=== PATIENT | female | born 1960 | race American Indian/Alaskan Native ===

== ENCOUNTER 2019-07-03 11:05 | Observation (INO) | payer BC ==
--- NOTE | 2019-07-03 11:50 | XRay Report ---
CHEST 2 VIEWS INDICATION / CLINICAL INFORMATION: Chest Pain. COMPARISON: None available. FINDINGS: SUPPORT DEVICES: None. HEART / MEDIASTINUM: No significant abnormality. LUNGS / PLEURA: No significant pulmonary or pleural abnormality. No pneumothorax. ADDITIONAL FINDINGS: No significant additional findings. IMPRESSION: 1. No acute findings. Signer Name: Robert Mullins MD Signed: 07/03/2019 11:46 AM Workstation Name: [id number]
[2019-07-03] MEDS ORDERED: MORPHINE 4 MG/1 ML INJ IV ONE (11:51)
[2019-07-03] MEDS ORDERED: ONDANSETRON 4 MG/2 ML INJ IV ONE (11:51)
[2019-07-03 11:57] LABS: BUN/Creatinine Ratio 28; Blood Urea Nitrogen 14 mg/dL (7-17); Calcium 9.5 mg/dL (8.4-10.2); Hemolysis Index 3
--- NOTE | 2019-07-03 11:58 | Emergency Department Report ---
HPI - General Chief Complaint: Chest Pain Time Seen by Provider: 07/03/19 11:33 - HPI HPI: Room 4 The patient is a 59-year-old female present with a chief complaint of chest pain. The patient states she has had intermittent chest pain for the past 4 ye ars. Patient states last week she also developed numbness in her left hand and upper extremity in addition to her sharp chest pain. Patient denies shortness of breath or nausea/vomiting but admits to diaphoresis with her chest pain. Patient currently gives her pain a score of 7/10. Patient states she took 181 mg aspirin while at home prior to coming to the ED today. Patient states her last stress test occurred in 2019 but she is never had a cardiac catheterization ED Past Medical Hx - Past Medical History Previous Medical History?: No - Surgical History Past Surgical History?: No - Family History Family history: no significant - Social History Smoking Status: Never Smoker Substance Use Type: None (Denies illicit drug use), Alcohol (Occasional) ED Review of Systems ROS: Stated complaint: CHEST PAIN Other details as noted in HPI Constitutional: diaphoresis Eyes: denies: eye pain ENT: denies: throat pain Respiratory: shortness of breath Cardiovascular: chest pain Endocrine: no symptoms reported Gastrointestinal: denies: nausea, vomiting Genitourinary: denies: dysuria Musculoskeletal: denies: back pain Neurological: denies: headache Physical Exam - Physical Exam Vital Signs: Vital Signs 07/03/19 11:20 Temperature 97.7 F Pulse Rate 78 Respiratory 18 Rate Blood Pressure 158/95 O2 Sat by Pulse 98 Oximetry Physical Exam: GENERAL: The patient is well-developed well-nourished female lying on stretcher not appearing to be in acute distress. [] HEENT: Normocephalic. Atraumatic. Extraocular motions are intact. Patient has moist mucous membranes. NECK: Supple. Trachea midline CHEST/LUNGS: Clear to auscultation. There is no respiratory distress noted. HEART/CARDIOVASCULAR: Regular. There is no tachycardia. There is no gallop rub or murmur. ABDOMEN: Abdomen is soft, nontender. Patient has normal bowel sounds. There is no abdominal distention. SKIN: There is no rash. There is no edema. There is no diaphoresis. NEURO: The patient is awake, alert, and oriented. The patient is cooperative. The patient has normal speech MUSCULOSKELETAL: There is no evidence of acute injury. ED Course Vital Signs 07/03/19 11:20 Temperature 97.7 F Pulse Rate 78 Respiratory 18 Rate Blood Pressure 158/95 O2 Sat by Pulse 98 Oximetry ED Medical Decision Making - Lab Data Result diagrams: 07/03/19 11:28 07/03/19 11:28 Laboratory Tests 07/03/19 07/03/19 11:28 11:28 WBC 5.5 RBC 4.05 Hgb 13.3 Hct 38.7 MCV 96 MCH 33 H MCHC 34 RDW 13.4 Plt Count 297 Lymph % (Auto) 38.7 H [place] % (Auto) 6.2 Eos % (Auto) 2.4 Baso % (Auto) 0.6 Lymph # 2.2 [place] # 0.4 Eos # 0.1 Baso # 0.0 Seg Neutrophils % 52.1 Nucleated RBC % Not Reportable Seg Neutrophils # 3.0 WBC Morphology Not Reportable Hypersegmented Neuts Not Reportable Hyposegmented Neuts Not Reportable Hypogranular Neuts Not Reportable Smudge Cells Not Reportable Toxic Granulation Not Reportable Toxic Vacuolation Not Reportable Dohle Bodies Not Reportable Pelger-Huet Anomaly Not Reportable Eyal Rods Not Reportable Platelet Estimate Not Reportable Clumped Platelets Not Reportable Plt Clumps, EDTA Not Reportable Large Platelets Not Reportable Giant Platelets Not Reportable Platelet Satelliting Not Reportable Plt Morphology Comment Not Reportable RBC Morphology Not Reportable Dimorphic RBCs Not Reportable Polychromasia Not Reportable Hypochromasia Not Reportable Poikilocytosis Not Reportable Anisocytosis Not Reportable Microcytosis Not Reportable Macrocytosis Not Reportable Spherocytes Not Reportable Pappenheimer Bodies Not Reportable Sickle Cells Not Reportable Target Cells Not Reportable Tear Drop Cells Not Reportable Ovalocytes Not Reportable Helmet Cells Not Reportable [place] Bodies Not Reportable Mccormick Rings Not Reportable [place] Cells Not Reportable Bite Cells Not Reportable Crenated Cell Not Reportable Elliptocytes Not Reportable Acanthocytes (Spur) Not Reportable Rouleaux Not Reportable Hemoglobin C Crystals Not Reportable Schistocytes Not Reportable Malaria parasites Not Reportable Jose De Jesus Bodies Not Reportable Hem Pathologist Commnt Not Reportable Sodium 142 Potassium 4.3 Chloride 102.8 Carbon Dioxide 23 Anion Gap 21 BUN 14 Creatinine 0.5 L Estimated GFR > 60 BUN/Creatinine Ratio 28 Glucose 99 Calcium 9.5 Troponin T < 0.010 - EKG Data -: EKG Interpreted by Me EKG shows normal: sinus rhythm Rate: normal - EKG Data When compared to previous EKG there are: previous EKG unavailable Interpretation: other (No ischemic changes seen) - Radiology Data Radiology results: report reviewed (Chest x-ray) Chest x-ray (read by radiologist)-no acute finding - Differential Diagnosis ACS, pericarditis, GERD Critical care attestation.: If time is entered above; I have spent that time in minutes in the direct care of this critically ill patient, excluding procedure time. ED Disposition Clinical Impression: Chest pain Disposition: DC-09 OP ADMIT IP TO THIS HOSP Is pt being admited?: Yes Does the pt Need Aspirin: Yes Condition: Fair Instructions: Chest Pain (ED) Time of Disposition: 13:46 (Hospitalist paged (Dr Mojica))
[2019-07-03 12:04] LABS: Hematocrit 38.7 % (30.3-42.9); Hemoglobin 13.3 gm/dl (10.1-14.3); Mean Corpuscular HGB Conc 34 % (30-34); Mean Corpuscular Volume 96 fl (79-97); Platelet Count 297 K/mm3 (140-440); Red Blood Count 4.05 M/mm3 (3.65-5.03); Red Cell Distribution Width 13.4 % (13.2-15.2)
[2019-07-03 12:42] LABS: Basophils % (Auto) 0.6 % (0.0-1.8); Eosinophils # (Auto) 0.1 K/mm3 (0.0-0.4); Eosinophils % (Auto) 2.4 % (0.0-4.3); Lymphocytes # (Auto) 2.2 K/mm3 (1.2-5.4); Lymphocytes % (Auto) 38.7 % (13.4-35.0); Monocytes # (Auto) 0.4 K/mm3 (0.0-0.8); Monocytes % (Auto) 6.2 % (0.0-7.3)
[2019-07-03] MEDS: ASPIRIN 325 MG TAB PO ONE ×2 (12:51→14:38)
[2019-07-03] MEDS: NITROGLYCERIN 2% OINT 1 GM TP ONE ×2 (12:51→14:38)
[2019-07-03] MEDS ORDERED: NITROGLYCERIN 2% OINT 1 GM TP ONE (14:32)
[2019-07-03] MEDS ORDERED: ASPIRIN 325 MG TAB ONE (14:32)
[2019-07-03] MEDS ORDERED: ONDANSETRON 4 MG/2 ML INJ IV PRN (20:14)
[2019-07-03] MEDS ORDERED: oxyCODONE /ACETAMINOPHEN 5-325MG TAB PO PRN (20:14)
[2019-07-03] MEDS ORDERED: ACETAMINOPHEN 325 MG TAB PO PRN (20:14)
[2019-07-03] MEDS ORDERED: IBUPROFEN 600 MG TAB PO PRN (20:14)
[2019-07-03] MEDS ORDERED: HYDROmorphone 1 MG/1 ML INJ IV PRN (20:14)
--- NOTE | 2019-07-03 20:21 | History and Physical Report ---
History of Present Illness Date of examination: 07/03/19 Date of admission: 07/03/19 13:50 Chief complaint: L sided chest pain 1 week History of present illness: 59 yo AAF with no significant pmh comes in for L sided chest pain for 1 week.Chest pain is under the l breast and tender to palpation.Chest pain is intermittent and sharp..7 on a scale of 1 to 10.Also some numbness on L arm.pain is 7/10.NO SOB or diaphoresis.No exacerbating or relieving factors.Pain lcalized L Inframammary area and tender to palpation.Last stress test was in [address] Candelaria but no cath.Wears wire bra which is compressing n Chest . Past Medical History Previous Medical History?: No Surgical History Past Surgical History?: No Family History Family history: no significant Social History Smoking Status: Never Smoker Substance Use Type: None (Denies illicit drug use), Alcohol (Occasional) Review of Systems ROS: Stated complaint: CHEST PAIN Other details as noted in HPI Constitutional: diaphoresis Eyes: denies: eye pain ENT: denies: throat pain Respiratory: shortness of breath Cardiovascular: chest pain Endocrine: no symptoms reported Gastrointestinal: denies: nausea, vomiting Genitourinary: denies: dysuria Musculoskeletal: denies: back pain Neurological: denies: headache Medications and Allergies Allergies Allergy/AdvReac Type Severity Reaction Status Date / Time naproxen [From Naprosyn] Allergy Unknown Verified 07/03/19 11:10 Exam - Constitutional Vitals: Temp Pulse Resp BP Pulse Ox 97.7 F 90 16 164/89 100 07/03/19 11:20 07/03/19 16:18 07/03/19 17:00 07/03/19 15:31 07/03/19 15:31 General appearance: Present: no acute distress, well-nourished - EENT Eyes: Present: PERRL ENT: hearing intact, clear oral mucosa - Neck Neck: Present: supple, normal ROM - Respiratory Respiratory effort: normal Respiratory: bilateral: CTA Details: Chest wall tenderness present especially at L 5th rib and costochondral junction. - Cardiovascular Heart rate: 78 Rhythm: regular Heart Sounds: Present: S1 & S2. Absent: rub, click - Extremities Extremities: no ischemia, pulses intact, pulses symmetrical, No edema Peripheral Pulses: within normal limits - Abdominal General gastrointestinal: Present: soft, non-tender, non-distended, normal bowel sounds Female genitourinary: Present: normal - Rectal Rectal Exam: deferred - Integumentary Integumentary: Present: clear, warm, dry - Musculoskeletal Musculoskeletal: gait normal, strength equal bilaterally - Psychiatric Psychiatric: appropriate mood/affect, intact judgment & insight - Neurologic Neurologic: CNII-XII intact, moves all extremities - Allied Health Allied health notes reviewed: nursing, case management STEVE score - Steve Score Age > 65: (0) No Aspirin use within the Past 7 Days: (0) No 3 or more CAD Risk Factors: (0) No 2 or more Angina events in past 24 hrs: (0) No Known CAD with more than 50% Stenosis: (0) No Elevated Cardiac Markers: (0) No ST Deviation Greater than 0.5mm: (0) No STEVE Score: 0 Results - Labs CBC & Chem 7: 07/03/19 11:28 07/03/19 11:28 Labs: Laboratory Last Values WBC 5.5 K/mm3 (4.5-11.0) 07/03/19 11:28 RBC 4.05 M/mm3 (3.65-5.03) 07/03/19 11:28 Hgb 13.3 gm/dl (10.1-14.3) 07/03/19 11:28 Hct 38.7 % (30.3-42.9) 07/03/19 11:28 MCV 96 fl (79-97) 07/03/19 11:28 MCH 33 pg (28-32) H 07/03/19 11:28 MCHC 34 % (30-34) 07/03/19 11:28 RDW 13.4 % (13.2-15.2) 07/03/19 11:28 Plt Count 297 K/mm3 (140-440) 07/03/19 11:28 Lymph % (Auto) 38.7 % (13.4-35.0) H 07/03/19 11:28 [place] % (Auto) 6.2 % (0.0-7.3) 07/03/19 11:28 Eos % (Auto) 2.4 % (0.0-4.3) 07/03/19 11:28 Baso % (Auto) 0.6 % (0.0-1.8) 07/03/19 11:28 Lymph # 2.2 K/mm3 (1.2-5.4) 07/03/19 11:28 [place] # 0.4 K/mm3 (0.0-0.8) 07/03/19 11:28 Eos # 0.1 K/mm3 (0.0-0.4) 07/03/19 11:28 Baso # 0.0 K/mm3 (0.0-0.1) 07/03/19 11:28 Seg Neutrophils % 52.1 % (40.0-70.0) 07/03/19 11:28 Nucleated RBC % Not Reportable 07/03/19 11:28 Seg Neutrophils # 3.0 K/mm3 (1.8-7.7) 07/03/19 11:28 WBC Morphology Not Reportable 07/03/19 11:28 Hypersegmented Neuts Not Reportable 07/03/19 11:28 Hyposegmented Neuts Not Reportable 07/03/19 11:28 Hypogranular Neuts Not Reportable 07/03/19 11:28 Smudge Cells Not Reportable 07/03/19 11:28 Toxic Granulation Not Reportable 07/03/19 11:28 Toxic Vacuolation Not Reportable 07/03/19 11:28 Dohle Bodies Not Reportable 07/03/19 11:28 Pelger-Huet Anomaly Not Reportable 07/03/19 11:28 Eyal Rods Not Reportable 07/03/19 11:28 Platelet Estimate Not Reportable 07/03/19 11:28 Clumped Platelets Not Reportable 07/03/19 11:28 Plt Clumps, EDTA Not Reportable 07/03/19 11:28 Large Platelets Not Reportable 07/03/19 11:28 Giant Platelets Not Reportable 07/03/19 11:28 Platelet Satelliting Not Reportable 07/03/19 11:28 Plt Morphology Comment Not Reportable 07/03/19 11:28 RBC Morphology Not Reportable 07/03/19 11:28 Dimorphic RBCs Not Reportable 07/03/19 11:28 Polychromasia Not Reportable 07/03/19 11:28 Hypochromasia Not Reportable 07/03/19 11:28 Poikilocytosis Not Reportable 07/03/19 11:28 Anisocytosis Not Reportable 07/03/19 11:28 Microcytosis Not Reportable 07/03/19 11:28 Macrocytosis Not Reportable 07/03/19 11:28 Spherocytes Not Reportable 07/03/19 11:28 Pappenheimer Bodies Not Reportable 07/03/19 11:28 Sickle Cells Not Reportable 07/03/19 11:28 Target Cells Not Reportable 07/03/19 11:28 Tear Drop Cells Not Reportable 07/03/19 11:28 Ovalocytes Not Reportable 07/03/19 11:28 Helmet Cells Not Reportable 07/03/19 11:28 Bradley-[place] Bodies Not Reportable 07/03/19 11:28 Meta Rings Not Reportable 07/03/19 11:28 [place]a Cells Not Reportable 07/03/19 11:28 Bite Cells Not Reportable 07/03/19 11:28 Crenated Cell Not Reportable 07/03/19 11:28 Elliptocytes Not Reportable 07/03/19 11:28 Acanthocytes (Spur) Not Reportable 07/03/19 11:28 Rouleaux Not Reportable 07/03/19 11:28 Hemoglobin C Crystals Not Reportable 07/03/19 11:28 Schistocytes Not Reportable 07/03/19 11:28 Malaria parasites Not Reportable 07/03/19 11:28 Jose De Jesus Bodies Not Reportable 07/03/19 11:28 Hem Pathologist Commnt Not Reportable 07/03/19 11:28 Sodium 142 mmol/L (137-145) 07/03/19 11:28 Potassium 4.3 mmol/L (3.6-5.0) 07/03/19 11:28 Chloride 102.8 mmol/L (98-107) 07/03/19 11:28 Carbon Dioxide 23 mmol/L (22-30) 07/03/19 11:28 Anion Gap 21 mmol/L 07/03/19 11:28 BUN 14 mg/dL (7-17) 07/03/19 11:28 Creatinine 0.5 mg/dL (0.7-1.2) L 07/03/19 11:28 Estimated GFR > 60 ml/min 07/03/19 11:28 BUN/Creatinine Ratio 28 % 07/03/19 11:28 Glucose 99 mg/dL (65-100) 07/03/19 11:28 Calcium 9.5 mg/dL (8.4-10.2) 07/03/19 11:28 Troponin T < 0.010 ng/mL (0.00-0.029) 07/03/19 17:49 Short CBC 07/03/19 Range/Units 11:28 WBC 5.5 (4.5-11.0) K/mm3 Hgb 13.3 (10.1-14.3) gm/dl Hct 38.7 (30.3-42.9) % Plt Count 297 (140-440) K/mm3 BMP 07/03/19 11:28 Sodium 142 Potassium 4.3 Chloride 102.8 Carbon Dioxide 23 BUN 14 Creatinine 0.5 L Glucose 99 Calcium 9.5 Cardiac Enzymes 07/03/19 07/03/19 07/03/19 Range/Units 11:28 14:10 17:49 Troponin T < 0.010 < 0.010 < 0.010 (0.00-0.029) ng/mL 07/03/19 07/04/19 Range/Units 21:17 02:15 Troponin T < 0.010 < 0.010 (0.00-0.029) ng/mL - Imaging and Cardiology EKG: report reviewed (NSR 65/min) Chest x-ray: report reviewed (NAF) CT scan - chest: report reviewed (NAF) Assessment and Plan Advance Directives: Yes (Full code) VTE prophylaxis?: Chemical Plan of care discussed with patient/family: Yes - Patient Problems (1) Chest pain Current Visit: Yes Status: Acute Qualifiers: Chest pain type: chest pain on breathing Qualified Code(s): R07.1 - Chest pain on breathing; R07.81 - Pleurodynia Plan to address problem: Patient has local wall tenderness on5 th rib and costochondral junction c/w costochondritisd. NSAIDS at discharge and not to wear a wire bra Serial tropnins and Stress test in am Admitted in Obxs statu Admitted b/c of L arm numbness. (2) Acute costochondritis Current Visit: Yes Status: Acute Plan to address problem: NSAIUDs at discharge (3) Hypertension Current Visit: Yes Status: Chronic Qualifiers: Hypertension type: essential hypertension Qualified Code(s): I10 - Essential (primary) hypertension Plan to address problem: Patient started on losartan 50 mg once a day New onset (4) DVT prophylaxis Current Visit: Yes Status: Acute Plan to address problem: On Heparin and GI prophylaxis
[2019-07-03] MEDS: FAMOTIDINE 20 MG TAB PO SCH (21:45)
[2019-07-03] MEDS: HEPARIN 5,000 UNIT/1 ML VIAL SUB-Q SCH (21:45)
--- NOTE | 2019-07-03 23:36 | Cat Scan Report ---
CT CHEST WITHOUT IV CONTRAST INDICATION: Chest wall pain and shortness of breath. COMPARISON: None available. TECHNIQUE: All CT scans at this location are performed using CT dose reduction for ALARA by means of automated e xposure control. Axial CT images were obtained through the chest. FINDINGS: Upper Abdomen: No acute abnormality. Skeletal System: No acute abnormality. Chest: Great Vessels: No acute abnormality. Heart: Normal. Mediastinum & Rody: No significant abnormality. Lungs: No acute air space or interstitial disease. Pleura: No significant pleural effusion. No pneumothorax. Additional Findings: None. IMPRESSION: 1. No acute findings in the chest. Signer Name: Chente Marcano MD Signed: 07/03/2019 11:31 PM Workstation Name: [id number]
[2019-07-04] MEDS: LOSARTAN 50 MG TAB PO SCH ×2 (04:34→12:00)
[2019-07-04 06:55] LABS: Basophils % (Auto) 0.7 % (0.0-1.8); Eosinophils # (Auto) 0.2 K/mm3 (0.0-0.4); Eosinophils % (Auto) 2.8 % (0.0-4.3); Hematocrit 35.4 % (30.3-42.9); Lymphocytes # (Auto) 3.6 K/mm3 (1.2-5.4); Lymphocytes % (Auto) 53.9 % (13.4-35.0); Mean Corpuscular HGB Conc 34 % (30-34); Mean Corpuscular Volume 95 fl (79-97); Monocytes # (Auto) 0.4 K/mm3 (0.0-0.8); Monocytes % (Auto) 5.3 % (0.0-7.3); Platelet Count 280 K/mm3 (140-440); Red Blood Count 3.73 M/mm3 (3.65-5.03); Red Cell Distribution Width 13.3 % (13.2-15.2)
[2019-07-04 07:06] LABS: Alanine Aminotransferase 12 units/L (7-56); Albumin 3.8 g/dL (3.9-5); BUN/Creatinine Ratio 27; Blood Urea Nitrogen 16 mg/dL (7-17); Calcium 9.2 mg/dL (8.4-10.2); Hemolysis Index 10
[2019-07-04] MEDS: HEPARIN 5,000 UNIT/1 ML VIAL SUB-Q SCH (11:59)
[2019-07-04] MEDS: FAMOTIDINE 20 MG TAB PO SCH (12:00)
[2019-07-04 12:02] VITALS: BP 149/74
--- NOTE | 2019-07-04 12:35 | Discharge Summary ---
Providers - Providers Date of Admission: 07/03/19 13:50 Date of discharge: 07/04/19 Attending physician: RAFFY HODGE Primary care physician: TELESALES PROFESSIONAL Hospitalization Condition: Stable Hospital course: Patient is a 59 yo AAF with no significant pmh comes in for L sided chest pain for 1 week. * EKG: report reviewed (NSR 65/min) * Chest x-ray: report reviewed (NAF) * CT scan chest without contrast- chest: report reviewed (NAF) Discharge Diagnoses: Chest pain due to Acute costochondritis Radiculopathy, bilateral hand, possible carpal on left, she is a regional dedicated truck driver for many years Hypertension Left Breast Mass @ 5 o'clock position, oval, unable to delineated border, tender and causing reproducible chest wall tenderness, mammogram was less than 1 year, advised to return to PCP, advise her that breast cancer can come at any time, pt voiced du&a Disposition: DC-01 TO HOME OR SELFCARE Time spent for discharge: 34 minutes Core Measure Documentation - Palliative Care Palliative Care/ Comfort Measures: Not Applicable - Core Measures Any of the following diagnoses?: none - VTE Discharge Requirements Deep Vein Thrombosis/Pulmonary Embolism Present on Admission: No Has pt received <5 days of overlap therapy or INR<2.0: No Anticoagulant overlap therapy prescribed at discharge: No Contraindication No Overlap Therapy order at DC: Not Indicated Exam - Physical Exam Narrative exam: Gen: WDWN, NAD, Awake, Alert, Orientated HEENT: NCAT, EOMI, PERRL, OP Clear Neck: supple, no adenopathy, no thyromegaly, no JVD CVS/Heart: RRR, normal S1S2, pulses present bilaterally Chest/Lungs: CTA B, Symmetrical chest expansion, good air entry bilaterally GI/Abdomen: soft, NTND, good bowel sounds, no guarding or rebound /Bladder: no suprapubic tenderness, no CVA or paraspinal tenderness Extermity/Skin: no c/c/e, no obvious rash MSK: FROM x 4 Neuro: CN 2-12 grossly intact, no new focal deficits Psych: calm Left Breast Mass @ 5 o'clock position, oval, unable to delineated border, tender and causing reproducible chest wall tenderness - Constitutional Vitals: Temp Pulse Resp BP Pulse Ox 98.1 F 60 18 149/74 99 07/04/19 08:32 07/04/19 12:00 07/04/19 08:32 07/04/19 12:00 07/04/19 08:32 Plan Activity: other (no strenous activity unless cleared by PCP) Diet: low salt Additional Instructions: 1) Please see your PCP and breast surgeon, Dr. Garrison for the breast mass. 2) See Dr. Mccormack regarding the numbness and tingling in both hands/fingers Follow up with: SABAS GARRISON MD [Staff Physician] - 7 Days EMELY LORENZO MD [Staff Physician] - 7 Days ALISON MCCORMACK MD [Staff Physician] - 7 Days Prescriptions: Losartan [Cozaar] 50 mg PO QDAY #30 tablet oxyCODONE /ACETAMINOPHEN [Percocet 5/325 mg] 1 tab PO Q6H PRN #16 tablet PRN Reason: Pain , Severe (7-10)
== END 2019-07-04 14:35 | disposition home or self-care (01) ==
LOC: ED 11:05 → 4A 13:50
PROVIDERS: ADMIT Internal Medicine; ATTEND Internal Medicine
DX: R07.89 Other chest pain (principal); M94.0 Chondrocostal junction syndrome [Tietze]; I10 Essential (primary) hypertension
CPT/HCPCS: 36415; 71046; 71250; 80048; 80053; 83036; 84484; 85007; 85025; 93005; 93010; 93017; 96372; G0378; J1644; 96360